=== PATIENT | female | born 1995 | race African-American/Black ===

== ENCOUNTER → 2017-03-28 | Outpatient (CLI) | payer OTHER | END | disposition home or self-care (01) | LOC: US 15:30 | DX: K29.00 Acute gastritis without bleeding (principal) | CPT/HCPCS: 76830; 76856 ==

== ENCOUNTER → 2017-06-06 | Outpatient (CLI) | payer OTHER | END | disposition home or self-care (01) | LOC: US 14:10 | DX: N83.201 Unspecified ovarian cyst, right side (principal); G89.29 Other chronic pain; Z20.2 Contact with and (suspected) exposure to infections with a predominantly sexual mode of transmission | CPT/HCPCS: 76830; 76856 ==